=== PATIENT | male | born 1985 | race African-American/Black ===

== ENCOUNTER 2022-10-05 15:48 | Emergency (ER) | payer OTHER ==
[~2022-10-05] VITALS: Ht 175.3 cm; Wt 63.5 kg
[2022-10-05 16:09] VITALS: BP_SYST 184
--- NOTE | 2022-10-05 16:44 | NUR ---
[facility]duard keys in [facility] - 10/05/22 at 1648 by [email or web address] Placed in room 04 . Placed on child monitor, blood pressure machine and pulse oximeter. To gown for exam. Side rails up.
[2022-10-05 16:45] LABS: BASOPHILS # (AUTO) 0.1 K/uL (0.0-0.2); BASOPHILS % (AUTO) 0.5 % (0.0-2.0); EOSINOPHILS % (AUTO) 8.1 % (0.0-4.0); HEMATOCRIT 41.7 % (36-54); LYMPHOCYTES # (AUTO) 1.6 K/uL (1.0-5.5); MEAN CORPUSCULAR HEMOGLOBIN 30 pg (27-31); MEAN CORPUSCULAR HGB CONC 34 % (32-36); MEAN CORPUSCULAR VOLUME 89 fL (79.0-98.0); MONOCYTES # (AUTO) 0.7 K/uL (0.0-1.0); MONOCYTES % (AUTO) 5.7 % (1.7-9.3); NEUTROPHILS # (AUTO) 8.9 K/uL (1.8-7.7); NEUTROPHILS % (AUTO) 72.7 % (40.0-70.0); PLATELET COUNT (AUTO) 416 K/uL (130-430); RED CELL DISTRIBUTION WIDTH 13.6 % (9.0-15.0); WHITE BLOOD COUNT (AUTO) 12.2 K/uL (4.8-10.8)
[2022-10-05 17:28] LABS: ANION GAP 9 (5-15); CALCIUM 8.8 mg/dL (8.4-11.0); CHLORIDE 103 mmol/L (98-107); CREATININE 1.02 mg/dL (0.55-1.30); GFR AFRICAN AMERICAN 106 mL/min (>90); GLUCOSE 145 mg/dL (70-99); UREA NITROGEN, BLOOD 12 mg/dL (8-21)
[2022-10-05 17:33] LABS: ALANINE AMINOTRANSFERASE 54 U/L (12-78); ALBUMIN 3.3 g/dL (3.4-4.8); ASPARTATE AMINOTRANSFERASE 26 U/L (10-37); TOTAL BILIRUBIN 0.3 mg/dL (0.0-1.0)
--- NOTE | 2022-10-05 18:09 | NUR ---
Placed in room 07 . Placed on quality assurance monitor body, blood pressure machine and pulse oximeter. To gown for exam. Side rails up. Report given to EMMANUEL MIGUEL.
--- NOTE | 2022-10-05 18:37 | NUR ---
PT CAME TO ED WITH FATHER, C/O CHEST PAIN POUNDING NOW CHEST PAIN IS 6 OUT OF 10. C/O BACK HEAD PAIN 9 OUT 10 PAIN SCALE THROBBING DESCRIBED BY PT. PT SAYS RIGHT SIDE OF FACE IS NUMB. VSS, EVEN AND UNLABORED RESPIRATION. PT HOOKED UP TO MONITOR WILL CONT TO MONITOR.
--- NOTE | 2022-10-05 18:42 | NUR ---
DR MENDOZA INFORMED TO RE-EVALUATE PT, HE KEEPS REPORTING OF RIGHT SIDED NUMBNESS AND RT EYE PRESSURE. NO SLURRED SPEECH NOTED. PT CONT TO BE HYPERTENSIVE, NO ORDERS RECEIVED. 164/98.
--- NOTE | 2022-10-05 18:47 | NUR ---
PAIN ON PALPATION TO BACK OF RIGHT HEAD.
[2022-10-05] MEDS ORDERED: HYDROcodone/ACETAMIN 10-325 MG TAB PO ONE (19:15)
[2022-10-05 21:50] VITALS: BP_SYST 157
--- NOTE | 2022-10-05 21:51 | NUR ---
Patient given written and verbal discharge instructions and verbalizes understanding. ER MD discussed with patient the results and treatment provided. Patient in stable condition. ID arm band removed. IV catheter removed intact and dressing applied, no active bleeding. Rx of NONE given. Patient educated on pain management and to follow up with PMD. Pain Scale . Opportunity for questions provided and answered. Medication side effect fact sheet provided.
[2022-10-05] MEDS ORDERED: IBUP-1971 PO (21:56)
[2022-10-05] MEDS ORDERED: HYDR-3917 PO (21:56)
== END 2022-10-05 21:43 | disposition home or self-care (01) ==
LOC: SED 15:48
DX: R07.9 Chest pain, unspecified (principal); R51.9 Headache, unspecified; Z79.899 Other long term (current) drug therapy
CPT/HCPCS: 36415; 70450-TC; 71045; 76376; 80053; 84484; 85025; 99285

== ENCOUNTER 2023-04-17 10:46 | Emergency (ER) | payer OTHER ==
[~2023-04-17] VITALS: Ht 157.5 cm; Wt 59.0 kg
[~2023-04-17 10:46] MED LIST: HYDR-3917 PO; IBUP-1971 PO
--- NOTE | 2023-04-17 11:24 | NUR ---
Patient to ER bed 07 to gown for evaluation. Side rails up.
[2023-04-17 11:25] VITALS: BP_SYST 133; PULSE 85; RESP 18; TEMP 98.3; O2SAT 98
[2023-04-17] MEDS ORDERED: HYDR-3917 PO (11:40)
[2023-04-17] MEDS ORDERED: SULF1TAB48 PO (11:40)
[2023-04-17] MEDS ORDERED: CLINDAMYCIN PHOSPHATE 300 MG/2 ML VIAL IM ONE (11:45)
--- NOTE | 2023-04-17 11:55 | NUR ---
ER at bedside examining patient.
--- NOTE | 2023-04-17 12:10 | NUR ---
Patient given written and verbal discharge instructions and verbalizes understanding. ER MD discussed with patient the results and treatment provided. Patient in stable condition. ID arm band removed. Rx of NORCO, BACTRIM given. Patient educated on pain management and to follow up with PMD. Opportunity for questions provided and answered. Medication side effect fact sheet provided.
[2023-04-17 12:26] VITALS: BP_SYST 133; PULSE 85; RESP 18; TEMP 98.3; O2SAT 98
== END 2023-04-17 12:10 | disposition home or self-care (01) ==
LOC: SED 10:46
DX: M25.521 Pain in right elbow (principal); Z79.899 Other long term (current) drug therapy
CPT/HCPCS: 99283